=== PATIENT | female | born 1960 | race Caucasian/White ===

== ENCOUNTER 2019-09-07 12:06 | Emergency (ER) | payer BC, OTHER ==
[~2019-09-07] VITALS: Ht 167.6 cm; Wt 81.6 kg
--- NOTE | 2019-09-07 12:22 | NUR ---
PT STATING "I DON'T KNOW IF I WANT TO WAIT. I SHOULD JUST GO TO A DIFFERENT HOSPITAL." PT EDUCATED REGARDING PT'S IN THE LOBBY. PT UNSURE IF SHE WANTS TO WAIT BUT WENT OUT TO THE LOBBY.
--- NOTE | 2019-09-07 12:59 | NUR ---
PT SENT FROM [facility]RG[facility]ARE FOR WORSENING COUGH, SPO2 "LOW" AT CLINIC. JEAN-CLAUDE RA SATS 94%. PT DENIES CP, SOB, N/V. ABLE TO SPEAK IN FULL SENTANCES
[2019-09-07 13:03] VITALS: BP 124/77
[2019-09-07] MEDS ORDERED: ALBUTEROL/IPRATROPIUM 2.5MG/0.5MG, 3 ML NPPB ONE (13:30)
[2019-09-07 13:42] LABS: BASOPHILS # (AUTO) 0.03 x10^3/uL (0-0.1); BASOPHILS % (AUTO) 0 % (0-1); EOSINOPHILS # (AUTO) 0.16 x10^3/uL (0-0.4); EOSINOPHILS % (AUTO) 2 % (1-7); LYMPHOCYTES # (AUTO) 1.63 x10^3/uL (1-3.4); LYMPHOCYTES % (AUTO) 25 % (22-44); MD NO; MEAN CORPUSCULAR HEMOGLOBIN 29.8 pg (27.0-34.8); MEAN CORPUSCULAR HGB CONC 32.4 g/dL (32.4-35.8); MEAN CORPUSCULAR VOLUME 91.8 fL (80-100); MEAN PLATELET VOLUME 8.8 fL (7.4-10.4); MONOCYTES # (AUTO) 0.52 x10^3/uL (0.2-0.8); MONOCYTES % (AUTO) 8 % (2-9); NEUTROPHILS # (AUTO) 4.28 x10^3/uL (1.8-6.8); NEUTROPHILS % (AUTO) 65 % (42-75); PLATELET COUNT 238 x10^3/uL (130-400); RED BLOOD COUNT 4.28 x10^6/uL (3.82-5.3); RED CELL DISTRIBUTION WIDTH 13.4 % (9.6-15.2)
[2019-09-07 13:53] LABS: ALBUMIN 3.3 g/dL (3.4-5.0); ANION GAP 5 mmol/L (5-15); CALCIUM 8.6 mg/dL (8.5-10.1); CHLORIDE 108 mmol/L (98-107); CREATININE 1.03 mg/dL (0.55-1.02)
== END 2019-09-07 15:13 | disposition home or self-care (01) ==
LOC: ED 14:00
DX: J10.1 Influenza due to other identified influenza virus with other respiratory manifestations (principal)
CPT/HCPCS: 36415; 80048; 82040; 85025; 94640; 99283